=== PATIENT | female | born 1990 | race Caucasian/White ===

== ENCOUNTER 2017-03-08 10:33 | Inpatient (IN) | payer OTHER ==
[2017-03-07 11:03] VITALS: BMI 54.1
[~2017-03-08 10:33] MED LIST: BUPIVACAINE HCL/PF 0.5% (5MG/ML) 10 ML VIAL IJ ONE
[2017-03-08] MEDS ORDERED: BUPIVACAINE HCL/PF 0.5% (5MG/ML) 10 ML VIAL ONE (11:13)
[2017-03-08] MEDS ORDERED: DEXAMETHASONE SOD PHOSPHATE 4 MG/1 ML VIAL ONE ×2 (11:37→14:27)
[2017-03-08] MEDS ORDERED: PROPOFOL 20 ML ONE ×2 (11:37)
[2017-03-08] MEDS ORDERED: ROCURONIUM BROMIDE 50 MG/5 ML VIAL ONE ×2 (11:37→12:49)
[2017-03-08] MEDS ORDERED: MIDAZOLAM HCL 2 MG/2 ML SINGLE DOSE VIAL ONE (11:37)
[2017-03-08] MEDS ORDERED: ceFAZolin SODIUM 1 GM VIAL IVPB ONE (12:27)
[2017-03-08] MEDS ORDERED: GLYCOPYRROLATE 0.2 MG/1 ML VIAL ONE (13:43)
[2017-03-08] MEDS ORDERED: NEOSTIGMINE METHYLSULFATE 0.5 MG/ML - 10 ML MDV ONE (13:43)
[2017-03-08] MEDS ORDERED: HYDROmorphone HCL CARPU-JECT 1 MG/1 ML DISP.SYRIN IVPB PRN (14:08)
[2017-03-08] MEDS ORDERED: ACETAMINOPHEN 1000 MG/100 ML VIAL (NON FORMULARY) IVPB SCH (14:15)
[2017-03-08] MEDS ORDERED: SODIUM CHLORIDE 1,000 ML IV SCH ×2 (14:15→14:51)
[2017-03-08] MEDS ORDERED: METOCLOPRAMIDE HCL INJECTION 10 MG/2 ML VIAL IVPB SCH (14:15)
[2017-03-08] MEDS ORDERED: ONDANSETRON 4 MG/2 ML VIAL IVPB SCH (14:15)
--- NOTE | 2017-03-08 14:22 | HP ---
[facility]ellite [facility] - Chief Complaint Chief Complaint: Morbid obesity History of Present Illness: 26 female presents for bariatric surgery History Source: Patient Limitations to Obtaining History: No Limitations - Past Medical History Allergies/Adverse Reactions: Allergies Allergy/AdvReac Type Severity Reaction Status Date / Time No Known Drug Allergies Allergy Verified 03/07/17 11:10 shellfish derived Allergy "RASH" Verified 03/07/17 11:10 Cardiovascular: Yes: HTN Gastrointestinal: Yes: Other (Morbid obesity) ...LMP: 02/15/17 - Current Medications Current Medications: Home Medications Medication Instructions Recorded Aripiprazole [Abilify] 15 mg PO HS 03/07/17 Cholecalciferol (Vitamin D3) 1,000 unit PO DAILY 03/07/17 [Vitamin D3 -] Labetalol HCl 100 mg PO BID 03/07/17 Lamotrigine [Lamictal] 150 mg PO BID 03/07/17 Multivitamins [Tab-A-Vit -] 1 tab PO DAILY 03/07/17 Satellite Physical Exam - Physical Examination Vital Signs: Vital Signs Period Temp Pulse Resp BP Sys/Irene Pulse Ox Last 24 Hr 97.8 F 82 18 135/85 99 General Appearance: Well Nourished Lung: Clear to auscultation Heart: Regular rate & rhythm Abdomen: No tenderness Neurological: Alert, Oriented Satellite Impression/Plan - Impression/Plan Impression: Morbid obesity Operative Procedure: Robotic vertical sleeve gastrectomy Date to be Performed: 03/08/17
--- NOTE | 2017-03-08 14:23 | SURG ---
Surgery Trust Administrator Note Trust Administrator: Familia Steve PA-C Date of Service: 03/08/17 Diagnosis: Morbid obesity Procedure: Robotic vertical sleeve gastrectomy I was present for the entirety of the operative procedure. For further detail, please refer to operative report. Visit type - Case Type Case Type: Scheduled Admission - New patient This patient is new to me today: Yes Date on this admission: 03/08/17
[2017-03-08] MEDS ORDERED: HYDROmorphone HCL CARPU-JECT 2 MG/1 ML DISP.SYRIN IVPUSH PRN (14:29)
[2017-03-08] MEDS ORDERED: LACTATED RINGERS SOLUTION 1,000 ML IV SCH (14:30)
[2017-03-08] MEDS ORDERED: DEXAMETHASONE SOD PHOSPHATE 4 MG/1 ML VIAL IVPUSH ONE (14:31)
--- NOTE | 2017-03-08 14:32 | OP ---
Operative Note - Note: Operative Date: 03/08/17 Pre-Operative Diagnosis: Morbid obesity Operation: Robotic vertical sleeve gastrectomy Post-Operative Diagnosis: Same as Pre-op Surgeon: Danilo Varghese Automatic Glove Former: Familia Steve Anesthesia: General Specimens Removed: Greater curvature of the stomach Estimated Blood Loss (mls): 30 Operative Report Dictated: Yes
[2017-03-08 15:04] LABS: MCH 28.3 pg (25.7-33.7); MCHC 33.3 g/dl (32.0-36.0); MEAN CELL VOLUME 85.2 fl (80-96); MEAN PLT VOLUME 7.8 fl (7.5-11.1); PLATELET COUNT 266 K/MM3 (134-434); RDW 14.1 % (11.6-15.6); WHITE BLOOD COUNT 12.9 K/mm3 (4.0-10.0)
[2017-03-08 15:29] LABS: ALBUMIN 3.8 g/dl (3.4-5.0); ALK PHOS 73 U/L (45-117); ANION GAP 11 (8-16); BILIRUBIN,TOTAL 0.4 mg/dL (0.2-1.0); CALCIUM 8.5 mg/dL (8.5-10.1); CO2 24 mmol/L (21-32); CREATININE 0.8 mg/dL (0.55-1.02); GLUCOSE,RANDOM 120 mg/dL (74-106); SGOT/AST 40 U/L (15-37); SGPT/ALT 47 U/L (12-78); TOT PROT 6.7 g/dl (6.4-8.2)
[2017-03-08] MEDS: ONDANSETRON 4 MG/2 ML VIAL IVPB SCH ×2 (19:40→21:37)
[2017-03-08] MEDS: ACETAMINOPHEN 1000 MG/100 ML VIAL (NON FORMULARY) IVPB SCH (20:50)
[2017-03-08] MEDS: METOCLOPRAMIDE HCL INJECTION 10 MG/2 ML VIAL IVPB SCH (20:50)
[2017-03-08] MEDS: ENOXAPARIN NA (PORCINE) 40 MG/0.4 ML DISP.SYRIN SQ SCH (21:42)
[2017-03-08] MEDS: FAMOTIDINE 20 MG/50 ML IVPB 50 ML IVPB SCH (21:42)
[2017-03-08] MEDS: lamoTRIgine 100 MG TABLET (FP) PO SCH (21:42)
[2017-03-08] MEDS: LABETALOL HCL 100 MG TABLET (FP) PO SCH (21:42)
[2017-03-08] MEDS ORDERED: LABETALOL HCL 100 MG TABLET (FP) PO SCH (22:00)
[2017-03-08] MEDS ORDERED: FAMOTIDINE 20 MG/50 ML IVPB 50 ML IVPB SCH (22:00)
[2017-03-08] MEDS ORDERED: ENOXAPARIN NA (PORCINE) 40 MG/0.4 ML DISP.SYRIN SQ SCH (22:00)
[2017-03-08] MEDS ORDERED: PATIENT'S OWN MEDICATION (NON-FORMULARY) (Lamotrigine [Lamictal] 150 MG) PO SCH (22:00)
[2017-03-09] MEDS ORDERED: PT OWN MED DRAWER 7, Y5N ONE (01:41)
[2017-03-09] MEDS: ACETAMINOPHEN 1000 MG/100 ML VIAL (NON FORMULARY) IVPB SCH ×2 (01:51→09:35)
[2017-03-09] MEDS: ONDANSETRON 4 MG/2 ML VIAL IVPB SCH ×5 (01:51→17:08)
[2017-03-09] MEDS: HYDROmorphone HCL CARPU-JECT 1 MG/1 ML DISP.SYRIN IVPB PRN ×2 (03:20→08:44)
[2017-03-09 07:46] LABS: MCH 28.8 pg (25.7-33.7); MCHC 33.7 g/dl (32.0-36.0); MEAN CELL VOLUME 85.5 fl (80-96); MEAN PLT VOLUME 8.3 fl (7.5-11.1); PLATELET COUNT 267 K/MM3 (134-434); RDW 13.4 % (11.6-15.6); WHITE BLOOD COUNT 9.8 K/mm3 (4.0-10.0)
[2017-03-09 08:18] LABS: CALCIUM 8.6 mg/dL (8.5-10.1)
[2017-03-09 08:24] LABS: ALBUMIN 3.5 g/dl (3.4-5.0); ALK PHOS 71 U/L (45-117); ANION GAP 12 (8-16); BILIRUBIN,TOTAL 0.5 mg/dL (0.2-1.0); CO2 23 mmol/L (21-32); COCKROFT - GAULT 289.8585; CREATININE 0.7 mg/dL (0.55-1.02); GLUCOSE,RANDOM 82 mg/dL (74-106); SGOT/AST 31 U/L (15-37); SGPT/ALT 40 U/L (12-78); TOT PROT 6.4 g/dl (6.4-8.2)
[2017-03-09] MEDS: lamoTRIgine 100 MG TABLET (FP) PO SCH (09:35)
[2017-03-09] MEDS: FAMOTIDINE 20 MG/50 ML IVPB 50 ML IVPB SCH (09:36)
[2017-03-09] MEDS: METOCLOPRAMIDE HCL INJECTION 10 MG/2 ML VIAL IVPB SCH (09:37)
[2017-03-09] MEDS: LABETALOL HCL 100 MG TABLET (FP) PO SCH (09:37)
[2017-03-09] MEDS: ENOXAPARIN NA (PORCINE) 40 MG/0.4 ML DISP.SYRIN SQ SCH (09:38)
[2017-03-09] MEDS ORDERED: oxyCODONE HCL 5 MG TABLET PO PRN (09:41)
[2017-03-09] MEDS ORDERED: ACETAMINOPHEN 325 MG TABLET (FP) PO PRN (09:41)
[2017-03-09] MEDS ORDERED: SODIUM CHLORIDE 1,000 ML IV SCH (09:45)
--- NOTE | 2017-03-09 10:51 | PN ---
Progress Note (short form) - Note Progress Note: POD #1 - s/p robotic assisted gastric sleeve. VSS. Pt. doing well, resting comfortably in bed. No complaints. No apparent anesthetic complications noted. Continue current care.
--- NOTE | 2017-03-09 13:26 | SPEC ---
DATE OF OPERATION: 03/08/2017 SURGEON: Danilo Varghese MD [employer] SALES REPRESENTATIVE: GAYATHRI Kahn PREOPERATIVE DIAGNOSES: 1. Morbid obesity. 2. Hypertension. POSTOPERATIVE DIAGNOSES: 1. Morbid obesity. 2. Hypertension. PROCEDURE: Robotic vertical sleeve gastrectomy. SPECIMEN: Greater curvature of the stomach. ESTIMATED BLOOD LOSS: 30 mL. DRAINS: None. BOUGIE SIZE: 36-Irish bougie. ANESTHESIA: GET. REASON FOR PROCEDURE: This is a 26-year-old female who presents to the office for evaluation for bariatric surgery. RISKS AND BENEFITS: After describing the different options for management of weight loss, the patient decided to proceed with a robotic laparoscopic, possible open vertical sleeve gastrectomy. The patient was seen by the respective subspecialties and cleared for surgery. The risks and benefits of the procedure were explained. These included bleeding, infection, hernia, SC, DVT, PE, injury to surrounding structures including the liver, colon, bowel, spleen, esophagus, vessel injury, nerve injury, weight regain, gastric leak, staple line leak, sleeve leak, obstruction, vitamin deficiency, hair loss, and as some of the possible complications. The patient understood and signed informed consent. DESCRIPTION OF PROCEDURE: The patient was placed supine on the operating room table. The patient underwent general endotracheal intubation. A Ferraro catheter was inserted by the nursing staff. The arms were brought out at 90 degrees and secured. A foot board was placed, and the legs were secured laterally with padding. The abdomen was prepped and draped in the usual sterile fashion. Timeout was performed. An incision was made superior and to the left of the umbilicus. A Veress needle was inserted. Pneumoperitoneum was established. Subsequently, the Veress needle was removed. An 8-mm optical robotic trocar was placed under direct visualization with the laparoscope. Inspection of the abdominal cavity was performed. An 8-mm trocar was then placed in the left abdominal wall approximately 6 to 7 cm to the left of the initial trocar. A 12-mm robotic trocar was then placed in the right abdominal wall approximately 6 to 7 cm to the right of the initial trocar and an 8-mm robotic trocar placed 6 to 7 cm lateral to the 12-mm trocar. A stab wound was made in the subxiphoid area and a Anitra clamp inserted and removed to dilate the tract. A Yin liver retractor was inserted. The post was secured at the bedside by the nursing staff. The patient was placed in steep reverse Trendelenburg position, and the Yin liver retractor was used to secure the liver towards the anterior abdominal wall. The robot was brought over the field and docked. Dissection was then performed at the console. The pylorus was identified and 6 cm proximal to it, the lesser sac was entered using the vessel sealer. From this point cephalad, all lateral attachments to the greater curvature of the stomach, including the short gastric vessels, were ligated using the vessel sealer towards the gastrosplenic and gastrophrenic ligaments. Once this was done in its entirety, all tubes within the nasal or oropharyngeal cavity, including a temperature probe, were confirmed to have been removed by Anesthesia. The bougie was then inserted by Anesthesia. Transection of the stomach was then begun, staying adjacent to the bougie but away from the angularis. Transection of the stomach was performed near the portion of the stomach where the lesser sac was entered. Two robotic green yakelin were used at this location. Robotic blue yakelin were then used for the remainder of the transection until the greater curvature of the stomach was fully transected. Again, this was done staying close to the bougie. Care was taken to stay away from the angle of His cephalad. The staple line was then inspected. Hemostasis was identified. A leak test was then performed. The stomach was clamped distally to the staple line. Irrigation solution was placed in the left upper quadrant and air insufflated by Anesthesia into the sleeve. No leaks were identified and no obstruction was identified. This was done throughout the entirety of the staple line. At this point, the irrigation solution was suctioned and again hemostasis noted. The robotic instruments were then removed. The robot was undocked and removed from the operative field. The 12-mm robotic trocar was removed and the specimen removed from this site using a sponge stick haley. The specimen was inspected and the Veress needle inserted. The specimen insufflated adequately and no leak was identified. The staple line was noted to be straight and intact. A Juan-Polly device was then used to close the fascia with a 0 Vicryl suture at this site. The liver retractor was removed under direct visualization. Pneumoperitoneum was desufflated, and the fascial suture was secured. Hemostasis was noted at all incision sites, and Marcaine was injected at all incision sites. All incision sites were closed using 4-0 Biosyn. Sterile dressings were applied. The patient tolerated the procedure well and was transferred to the recovery room in stable condition, with the Ferraro catheter intact. The patient was sent to the telemetry unit for monitoring. Juan MCCARTNEY/[id number]
--- NOTE | 2017-03-09 15:20 | PN ---
Progress Note (short form) - Note Progress Note: POD 1 Robotic vertical sleeve gastrectomy Pain controlled No vomiting Vital Signs Period Temp Pulse Resp BP Sys/Irene Pulse Ox Last 24 Hr . F-100.2 F 77-107 15-23 112-164/71-100 98-99 Abd soft, wounds c/d/i CBC, BMP 03/09/17 05:35 03/09/17 05:35 UGI- no leak/obstruction 2 ounces clears D/C yanez OOB D/C planning
[2017-03-09 18:11] VITALS: BP 129/83; PULSE 92; TEMP 99.7
[2017-03-09] MEDS ORDERED: ARIPiprazole 15 MG TABLET PO SCH (22:00)
--- NOTE | 2017-03-10 11:17 | PATH ---
Surgical Pathology Report Patient Name: VALENTE CRUZ [facility]. Rec. #: [id number] /Age/Gender: 1990 (Age: 26) / F Account: [id number] Location: 4 W TELEMETRY U Taken: 03/08/2017 Received: 03/09/2017 Reported: 03/10/2017 Physicians: Danilo Varghese M.D. Specimen(s) Received GREATER CURVATURE OF STOMACH Clinical History Morbid obesity Final Diagnosis STOMACH, GREATER CURVATURE, SLEEVE GASTRECTOMY: PORTION OF STOMACH WITH FOCAL MILD CHRONIC GASTRITIS. IMMUNOSTAIN FOR H. PYLORI IS NEGATIVE. Electronically Signed Werner Ríos M.D. Gross Description Received in formalin, labeled "greater curvature of stomach," is a 109 gram, 20.0 x 4.3 x 3.3 cm. portion of stomach with a stapled margin of resection. The serosa is alexander-galarza with minimal attached fat. The mucosa is alexander-pink with normal folds. No mucosal masses are identified. Brake Operator Helper sections are submitted in one cassette. /03/09/2017 [facility]03/09/2017
== END 2017-03-09 19:08 | disposition home or self-care (01) | DRG 403 ==
LOC: JSAMEDAYSX 10:33 → J4W 17:14
PROVIDERS: ADMIT Surgery; ATTEND Surgery
PROC: 8E0W4CZ Robotic Assisted Procedure of Trunk Region, Percutaneous Endoscopic Approach (ICD-10-PCS; 2017-03-08)
PROC: 0DB64Z3 Excision of Stomach, Percutaneous Endoscopic Approach, Vertical (ICD-10-PCS; principal; 2017-03-08 14:00)
DX: E66.01 Morbid (severe) obesity due to excess calories (principal); I10 Essential (primary) hypertension; Z68.43 Body mass index [BMI] 50.0-59.9, adult; Z71.3 Dietary counseling and surveillance
CPT/HCPCS: 36415; 74241-TC; 80053; 84703; 85027; 86850; 86900; 86901; 88305-TC; 94010; 94760